=== PATIENT | male | born 1960 | race Caucasian/White ===

== ENCOUNTER 2017-01-21 16:03 | Emergency (ER) | payer BC ==
[2017-01-21] MEDS ORDERED: Bupivacaine 0.5% 10 ML VIAL ONE (16:43)
[2017-01-21] MEDS ORDERED: Cephalexin 250 MG CAP ONE (17:24)
--- NOTE | 2017-01-21 22:46 | RAD ---
RIGHT INDEX FINGER 01/21/17 Extensive laceration of the index finger is present on the palmar surface. I do not see any opaque f oreign bodies. No fractures were detected. The joints appear normal. IMPRESSION: Extensive soft tissue laceration of the distal part of the index finger. POS: HOME
== END 2017-01-21 18:00 | disposition short-term general hospital (02) ==
LOC: BURERS 16:03
DX: S68.120A Partial traumatic metacarpophalangeal amputation of right index finger, initial encounter (principal); E78.5 Hyperlipidemia, unspecified; W45.8XXA Other foreign body or object entering through skin, initial encounter
CPT/HCPCS: J3490